=== PATIENT | female | born 2000 | race American Indian/Alaskan Native ===

== ENCOUNTER 2021-05-02 06:05 | Inpatient (IN) | payer MEDICAID ==
[2021-05-02] MEDS ORDERED: LACTATED RINGERS 1,000 ML ONE (06:21)
[2021-05-02] MEDS ORDERED: ePHEDrine SULFATE 50 MG/1 ML INJ IV PRN ×2 (06:26→08:30)
[2021-05-02] MEDS ORDERED: LIDOCAINE (2%) 20 MG/1 ML VIAL 20 ML MDV INFILTRATI ONE (06:26)
[2021-05-02] MEDS ORDERED: BUTORPHANOL 2 MG/1 ML INJ IV PRN ×2 (06:26)
[2021-05-02] MEDS ORDERED: METHYLERGONOVINE MALEATE 0.2 MG/ML VIAL IM PRN (06:26)
[2021-05-02] MEDS ORDERED: CARBOPROST TROMETHAMINE 250 MCG/1 ML INJ IM PRN (06:26)
[2021-05-02] MEDS ORDERED: OXYTOCIN 10 UNIT/1 ML INJ IM PRN (06:26)
[2021-05-02] MEDS ORDERED: TERBUTALINE 1 MG/1 ML INJ SUB-Q PRN (06:26)
[2021-05-02] MEDS ORDERED: MINERAL OIL 30 ML ORAL LIQD PO PRN (06:26)
[2021-05-02] MEDS ORDERED: miSOPROStol 200 MCG TAB PR PRN (06:26)
[2021-05-02] MEDS ORDERED: LOPERAMIDE 2 MG CAP PO PRN (06:26)
[2021-05-02] MEDS ORDERED: AMPICILLIN/NS 2 GM/100 ML 2 GM/100 ML BAG IV ONE (06:35)
[2021-05-02] MEDS ORDERED: fentaNYL 100 MCG/2 ML INJ ONE (06:39)
[2021-05-02] MEDS ORDERED: fentaNYL 100 MCG/2 ML INJ IV ONE (06:40)
[2021-05-02 06:43] LABS: Hematocrit 29.6 % (30.3-42.9); Hemoglobin 10.5 gm/dl (10.1-14.3); Mean Corpuscular HGB Conc 36 % (30-34); Mean Corpuscular Volume 87 fl (79-97); Platelet Count 318 K/mm3 (140-440); Red Blood Count 3.39 M/mm3 (3.65-5.03); Red Cell Distribution Width 14.5 % (13.2-15.2)
[2021-05-02] MEDS: LACTATED RINGERS 1,000 ML IV SCH ×2 (06:45→07:27)
[2021-05-02] MEDS ORDERED: OXYTOCIN DRIP 30 UNITS/500 ML BAG IV SCH ×2 (07:00)
[2021-05-02] MEDS ORDERED: BETAMET ACET/BETAMET NA PH 6 MG/ML INJ 5 ML MDV IM NR (07:53)
--- NOTE | 2021-05-02 08:09 | Anesthesia Consultation ---
Anesthesia Consult and Med Hx Date of service: 05/02/21 - Pulmonary Exam CTA: Yes - Cardiac Exam Cardiac Exam: RRR - Pre-Operative Health Status ASA Pre-Surgery Classification: ASA2 Proposed Anesthetic Plan: Epidural - Pulmonary Hx Asthma: No COPD: No Hx Pneumonia: No - Endocrine Hx End Stage Renal Disease: No
[2021-05-02] MEDS ORDERED: NALOXONE 2 MG/2 ML INJ IV PRN (08:30)
[2021-05-02] MEDS ORDERED: fentaNYL-BUPIV 2 MCG/ML-0.125% 200 MCG/100 ML BAG EPIDURAL SCH (09:00)
--- NOTE | 2021-05-02 09:34 | History and Physical Report ---
History of Present Illness Date of examination: 05/02/21 Date of admission: 05/02/21 Chief complaint: labor History of present illness: no available. by hx she is 34 weeks and 5 days . No labs available no history of surgery or medical problems. The patient is an active labor and expectant vaginal delivery today. Past History Past Medical History: no pertinent history Past Surgical History: no surgical history Family/Genetic History: none Social history: single - Obstetrical History Hx # Term Pregnancies: 1 Number of Pregnancies: 0 Spontaneous Abortions: 0 Induced : 0 Number of Living Children: 1 Medications and Allergies Allergies Allergy/AdvReac Type Severity Reaction Status Date / Time No Known Allergies Allergy Verified 05/02/21 06:27 Home Medications Medication Instructions Recorded Confirmed Last Taken Type Vit-Fe Fumar-FA [ 1 tab PO DAILY 05/02/21 05/02/21 05/01/21 History Vitamin] Active Meds: Active Medications Butorphanol Tartrate (Butorphanol 2 Mg/1 Ml Inj) 1 mg IV Q2H PRN PRN Reason: Pain, Moderate(4-6) LABOR PAIN Butorphanol Tartrate (Butorphanol 2 Mg/1 Ml Inj) 2 mg IV Q2H PRN PRN Reason: Pain , Severe (7-10) Carboprost Tromethamine (Carboprost Tromethamine 250 Mcg/1 Ml Inj) 250 mcg IM ONCE PRN PRN Reason: Uterine Bleeding Ephedrine Sulfate (Ephedrine Sulfate 50 Mg/1 Ml Inj) 10 mg IV Q2M PRN PRN Reason: Hypotension Oxytocin/Sodium Chloride (Pitocin/Ns 30 Unit/500ml) 30 units in 500 mls @ 2 mls/hr IV TITR KELLY; Protocol Lactated Ringer's (Lactated Ringers) 1,000 mls @ 125 mls/hr IV DIRECT KELLY Last Admin: 05/02/21 07:27 Dose: 125 mls/hr Documented by: Oxytocin/Sodium Chloride (Pitocin/Ns 30 Unit/500ml) 30 units in 500 mls @ 40 mls/hr IV TITR KELLY; Protocol Ampicillin Sodium (Ampicillin/Ns 1 Gm/50 Ml) 1 gm in 50 mls @ 100 mls/hr IV Q4H KELLY; Protocol Fentanyl/Bupivacaine/Sodium Chlor (Fentanyl-Bupiv 2 Mcg/Ml-0.125%) 200 mcg in 100 mls @ 12 mls/hr EPIDURAL TITR KELLY; Protocol Loperamide HCl (Loperamide 2 Mg Cap) 2 mg PO ONCE PRN PRN Reason: give with Hemabate Methylergonovine Maleate (Methylergonovine Maleate 0.2 Mg/Ml Vial) 0.2 mg IM ONCE PRN PRN Reason: Uterine Bleeding Mineral Oil (Mineral Oil 30 Ml Oral Liqd) 30 ml PO QHS PRN PRN Reason: Constipation Misoprostol (Misoprostol 200 Mcg Tab) 800 mcg DE ONCE PRN PRN Reason: Uterine Bleeding Naloxone HCl (Naloxone 2 Mg/2 Ml Inj) 0.2 mg IV Q5M PRN PRN Reason: Respiratory sedation Oxytocin (Oxytocin 10 Unit/1 Ml Inj) 10 unit IM ONCE PRN PRN Reason: Uterine Bleeding Terbutaline Sulfate (Terbutaline 1 Mg/1 Ml Inj) 0.25 mg SUB-Q ONCE PRN PRN Reason: Hyperstimulation/Hypertonicity Review of Systems All systems: negative - Vital Signs Vital signs: Vital Signs Pulse BP 81 119/63 05/02/21 06:18 05/02/21 06:18 Temp Pulse Resp BP Pulse Ox 98.2 F 108 H 18 101/55 100 05/02/21 07:16 05/02/21 09:29 05/02/21 07:16 05/02/21 09:00 05/02/21 09:29 - Physical Exam Breasts: Cardiovascular: Regular rate, Normal S1, Normal S2 Lungs: Positive: Clear to auscultation, Normal air movement Abdomen: Positive: normal appearance, soft, normal bowel sounds. Negative: distention, tenderness Genitourinary (Female): Positive: normal external genitalia Vulva: both: normal Vagina: Positive: normal moisture. Negative: discharge Cervix: Negative: lesion, discharge Uterus: Positive: normal size, enlarged (34 wks size), normal contour Adnexa: both: normal Anus/Rectum: Positive: normal perianal skin, heme negative. Negative: rectal mass, hemorrhoids Extremities: Deep Tendon Reflex Grade: Normal +2 - Obstetrical FHR: category 1 Uterine Contraction Monitor Mode: Palpation Results Result Diagrams: 05/02/21 06:15 Abnormal lab results 05/02/21 Range/Units 06:15 RBC 3.39 L (3.65-5.03) M/mm3 Hct 29.6 L (30.3-42.9) % MCHC 36 H (30-34) % All other labs normal. Assessment and Plan 34 wks iup labor.expectant vaf delivery.
--- NOTE | 2021-05-02 10:04 | Procedure Note ---
Date of procedure: 05/02/21 Pre-op diagnosis: 34 wks iup, labor Post-op diagnosis: same Procedure: Walk-in delivery. Patient active labor delivery. Preoperative diagnosis 34 weeks Postoperative diagnosis same. Surgeon Dr. morris estimated blood loss 200ccs. Anesthesia epidural. Drains [place]. Complications none. Findings liveborn male infant weight 6 pounds 2 ounces with Apgars 8 and 9. Procedure was a normal spontaneous no tears. Placenta was then delivered spo ntaneously. Rectal mucosa was intact.. Patient tolerated procedure well. Anesthesia: epidural Surgeon: EDINSON MORRIS Estimated blood loss: other (200ccs) Pathology: none Specimen disposition: discarded Condition: stable Disposition: observation
--- NOTE | 2021-05-02 10:09 | Progress Note ---
Labor Epidural - Labor Epidural Start Time: 08:32 Stop Time: 08:37 Performed by:: ORA ZHANG Procedure: Patient is requesting epidural for labor pain. H&P, and labs reviewed. Procedure explained, questions answered, consent obtained. Patient in sitting position with blood pressure cuff and pulse ox on and working. Timeout performed immediately before start of procedure. Sterile chlorahexadine 0.5% prep/drape. 3 mL 1% lidocaine skin wheal at L[3]-L[4]. 18-gauge Testiftead epidural needle advanced to [id number] with saline at [7] cm. Epidural catheter advanced to [12] cm, negative aspiration for blood and csf, negative test dose 3 ml 1.5% lidocaine with epinephrine. Epidural dexmedetomidine [30] mcg administered. Sterile steri-strips and tegaderm applied, followed by tape reinforcement. Patient tolerated procedure well. Alena MCKEON
[2021-05-02] MEDS ORDERED: LANOLIN/ZINC/DIMETHICONE (LANSINOH) 7 GM TP PRN (10:30)
[2021-05-02] MEDS ORDERED: oxyCODONE /ACETAMINOPHEN 5-325MG TAB PO PRN (10:30)
[2021-05-02] MEDS ORDERED: diphenhydrAMINE 25 MG CAP PO PRN (10:30)
[2021-05-02] MEDS ORDERED: WITCH HAZEL/ GLYCERIN PAD TP PRN (10:30)
[2021-05-02] MEDS ORDERED: ONDANSETRON 4 MG/2 ML INJ IV PRN (11:00)
[2021-05-02] MEDS ORDERED: AMPICILLIN/NS 1 GM/50 ML 1 GM/50 ML BAG IV SCH (11:00)
[2021-05-02] MEDS ORDERED: PROMETHAZINE 25 MG RECT SUPP PR PRN (11:00)
[2021-05-02] MEDS ORDERED: PROMETHAZINE 25 MG TAB PO PRN (11:00)
[2021-05-02] MEDS ORDERED: MAGNESIUM HYDROXIDE (MOM) ORAL LIQD UDC PO PRN (22:00)
[2021-05-02] MEDS: SENNOSIDES/DOCUSATE SODIUM 8.6/50 MG TAB PO SCH (23:51)
[2021-05-02] MEDS: IBUPROFEN 600 MG TAB PO SCH (23:52)
[2021-05-03 02:26] LABS: Hematocrit 25.6 % (30.3-42.9); Hemoglobin 8.4 gm/dl (10.1-14.3)
[2021-05-03] MEDS: IBUPROFEN 600 MG TAB PO SCH ×4 (05:35→22:27)
[2021-05-03] MEDS: FERROUS SULFATE 325 MG TAB PO SCH ×2 (11:35→22:28)
[2021-05-03] MEDS: SENNOSIDES/DOCUSATE SODIUM 8.6/50 MG TAB PO SCH ×2 (11:35→23:15)
--- NOTE | 2021-05-03 11:38 | Progress Note ---
Assessment and Plan A: day 1 S/P . Anemia (asymptomatic). P: Supplement with oral iron. Anticipate discharge home tomorrow if patient continues to do well. Subjective - Subjective Date of service: 05/03/21 Principal diagnosis: day 1 S/P Interval history: Asymptomatic anemia, ordered oral iron for patient. Patient reports: appetite normal, voiding normally, pain well controlled, flatus, ambulating normally, no dizzy ambulation, no nauseated : doing well Objective - Vital Signs Latest vital signs: Vital Signs Temp Pulse Resp BP Pulse Ox Pulse Ox 05/03/21 08:15 100 05/03/21 07:53 98.0 F 65 18 101/43 100 05/03/21 06:35 18 05/03/21 05:35 18 05/03/21 00:52 18 05/03/21 00:16 99.0 F 69 18 109/64 100 05/02/21 23:52 18 05/02/21 20:00 98.2 F 78 20 104/57 100 100 05/02/21 16:30 0 L 05/02/21 16:27 97.7 F 68 18 112/58 98 05/02/21 12:23 73 102/57 99 05/02/21 12:18 78 99 05/02/21 12:13 73 100 05/02/21 12:08 76 98/57 99 05/02/21 12:03 70 99 05/02/21 11:58 72 100 05/02/21 11:53 65 98/56 100 05/02/21 11:51 66 94/55 05/02/21 11:48 77 99 05/02/21 11:43 76 83/50 100 05/02/21 11:42 81 87/51 05/02/21 11:40 78 85/50 05/02/21 11:39 83 84/46 05/02/21 11:38 84 99 Intake and Output 05/02/21 05/03/21 05/03/21 23:59 07:59 15:59 Intake Total 600 480 Output Total 550 Balance 50 480 Intake: Oral 240 Intake, Free Water 360 480 Output: Urine 550 Void 550 Other: Total, Intake Amount 240 Total, Output Amount 550 # Voids Void 2 1 - Exam Cardiovascular: Present: Regular rate Lungs: Present: Clear to auscultation Abdomen: Present: normal appearance, soft, normal bowel sounds. Absent: distention, tenderness, guarding, rigidity Uterus: Present: normal, firm, fundal height below umbilicus. Absent: bogginess, tenderness Extremities: Present: normal. Absent: tenderness, edema - Labs Labs: Abnormal lab results 05/03/21 Range/Units 01:58 Hgb 8.4 L (10.1-14.3) gm/dl Hct 25.6 L (30.3-42.9) %
--- NOTE | 2021-05-03 20:26 | Post Anesthesia Evaluation ---
- Post Anesthesia Evaluation Patient Participated: Yes Airway Patent: Yes Stable Respiratory Function: Yes Nausea/Vomiting: No Temp > 96.8F: Yes Pain Manageable: Yes Adequeate Hydration: Yes Anesthesia Complications: No Block Receding Appropriately: Yes
--- NOTE | 2021-05-04 06:58 | Progress Note ---
Assessment and Plan A: day 2 S/P . Asymptomatic anemia. P: Discharge patient home today. Discussed with patient discharge instructions and warning signs. Advised patient to continue taking her vitamins and iron supplements at home. Advised patient to avoid intercourse, lifting, housework, driving. Advised patient to follow up at [facility] in 1 week. Patient voiced understanding of all instructions. Subjective - Subjective Date of service: 05/04/21 Principal diagnosis: day 2 S/P Interval history: Asymptomatic anemia, ordered oral iron for patient. Patient reports: appetite normal, voiding normally, pain well controlled, flatus, ambulating normally, no dizzy ambulation, no nauseated [place]: doing well Objective - Vital Signs Latest vital signs: Vital Signs Temp Pulse Resp BP BP Pulse Ox Pulse Ox 05/04/21 01:09 98.0 F 67 20 94/60 100 05/03/21 22:27 12 05/03/21 20:15 98 05/03/21 16:26 98 F 80 18 129/50 100 05/03/21 08:15 100 05/03/21 07:53 98.0 F 65 18 101/43 100 Intake and Output 05/03/21 05/03/21 05/04/21 15:59 23:59 07:59 Intake Total 360 480 Balance 360 480 Intake: Oral 360 480 Other: Total, Intake Amount 120 120 # Voids Void 1 1 1 - Exam Cardiovascular: Present: Regular rate Lungs: Present: Clear to auscultation Abdomen: Present: normal appearance, soft, normal bowel sounds. Absent: distention, tenderness, guarding, rigidity Uterus: Present: normal, firm, fundal height below umbilicus. Absent: bogginess, tenderness Extremities: Present: normal. Absent: tenderness, edema
--- NOTE | 2021-05-04 07:55 | Discharge Summary ---
Providers - Providers Date of Admission: 05/02/21 09:51 Date of discharge: 05/04/21 Attending physician: ALAYNA MILLER JR, MD Primary care physician: [facility] Hospitalization Reason for admission: active labor Delivery: Episiotomy: none Laceration: none Other procedures: none complications: none Discharge diagnosis: delivery baby: male Pertinent studies: Labs Hospital course: Stable hospital course. Condition at discharge: Good Disposition: DC-01 TO HOME OR SELFCARE - Discharge Diagnoses (1) delivery Status: Acute (2) Anemia Status: Acute Plan - Provider Discharge Summary Activity: routine, no sex for 6 weeks, no heavy lifting 4 weeks, no strenuous exercise Diet: routine Instructions: routine Additional instructions: Continue taking your vitamins and iron supplements at home. Follow up at [facility] in 1 week. Call your doctor immediately for: * Fever > 100.5 * Heavy vaginal bleeding ( >1 pad per hour) * Severe persistent headache * Shortness of breath * Reddened, hot, painful area to leg or breast - Follow up plan Follow up: EDINSON MORRIS MD [Staff Physician] - 7 Days
[2021-05-04] MEDS: IBUPROFEN 600 MG TAB PO SCH (12:54)
[2021-05-04] MEDS: FERROUS SULFATE 325 MG TAB PO SCH (12:55)
[2021-05-04 21:09] VITALS: BP 97/54
== END 2021-05-04 22:00 | disposition home or self-care (01) | DRG 775 ==
LOC: TRG 06:05 → APU 06:07 → LD 06:11 → TRG 09:51 → OB 13:05
PROVIDERS: ADMIT Obstetrics & Gynecology; ATTEND Obstetrics & Gynecology
PROC: 10E0XZZ Delivery of Products of Conception, External Approach (ICD-10-PCS; principal; 2021-05-02)
PROC: 3E0R3BZ Introduction of Anesthetic Agent into Spinal Canal, Percutaneous Approach (ICD-10-PCS; 2021-05-02)
PROC: 00HU33Z Insertion of Infusion Device into Spinal Canal, Percutaneous Approach (ICD-10-PCS; 2021-05-02)
DX: O60.14X0 Preterm labor third trimester with preterm delivery third trimester, not applicable or unspecified (principal); Z37.0 Single live birth; Z3A.34 34 weeks gestation of pregnancy; O90.81 Anemia of the puerperium; Z20.822 Contact with and (suspected) exposure to COVID-19; D64.9 Anemia, unspecified
CPT/HCPCS: 36415; 59025; 85014; 85018; 85027; 86592; 86850; 86900; 86901; 96360; 96361; 96372; 96374; G0378; J0290; J0702; J3010; J7120; U0003